=== PATIENT | female | born 1965 | race Caucasian/White ===

== ENCOUNTER → 2024-03-28 08:42 | Outpatient (REF) | payer OTHER, SELFPAY | LOC: HWRAD 08:42 | PROVIDERS: ATTENDING PHYSICIAN Internal Medicine Endocrinology, Diabetes & Metabolism; FAMILY PHYSICIAN Nurse Practitioner Family | DX: E04.2 Nontoxic multinodular goiter (principal) | CPT/HCPCS: 76536 ==

== ENCOUNTER → 2024-05-27 11:51 | Outpatient (REF) | payer OTHER, SELFPAY | LOC: HWRAD 11:51 | PROVIDERS: ATTENDING PHYSICIAN Nurse Practitioner Family | DX: J06.9 Acute upper respiratory infection, unspecified (principal); R05.9 Cough, unspecified; R68.83 Chills (without fever) | CPT/HCPCS: 71046 ==

== ENCOUNTER → 2025-02-03 10:12 | Outpatient (REF) | payer OTHER, SELFPAY | LOC: RAD 10:12 | PROVIDERS: ATTENDING PHYSICIAN Nurse Practitioner Family | DX: R60.0 Localized edema (principal) | CPT/HCPCS: 93971 ==

== ENCOUNTER → 2025-04-04 12:34 | Outpatient (REF) | payer OTHER, SELFPAY | LOC: HWRAD 12:34 | PROVIDERS: ATTENDING PHYSICIAN Nurse Practitioner Family | DX: M89.9 Disorder of bone, unspecified (principal) | CPT/HCPCS: 73552 ==